=== PATIENT | male | born 1985 ===

== ENCOUNTER 2020-12-15 06:00 | Day surgery (SDC) | payer OTHER ==
[~2020-12-15 06:00] MED LIST: AMLODIPINE PO; COZAAR100 MG PO; IROPLEX PO
[2020-12-15] MEDS ORDERED: COLACE100 MG PO (08:22)
[2020-12-15] MEDS ORDERED: PERCOCET 5-3251 EACH PO (08:22)
== END 2020-12-15 16:05 | disposition home or self-care (01) ==
LOC: CIR.AMB 06:00
PROVIDERS: ATTEND Surgery
DX: K64.8 Other hemorrhoids (principal); Z20.822 Contact with and (suspected) exposure to COVID-19